=== PATIENT | female | born 1975 | race Caucasian/White ===

== ENCOUNTER → 2017-11-27 | Outpatient (CLI) | payer BC ==
[~2017-11-27] MED LIST: MULVITMINE
== END | disposition home or self-care (01) ==
LOC: LAB 09:56 → LAB SHORT 09:56
PROVIDERS: Obstetrics & Gynecology
DX: Z01.419 Encounter for gynecological examination (general) (routine) without abnormal findings (principal)
CPT/HCPCS: 87624; G0123

== ENCOUNTER 2019-03-06 13:07 | Emergency (ER) | payer OTHER, BC ==
[~2019-03-06] VITALS: Ht 157.5 cm; Wt 72.6 kg
[2019-03-06] MEDS ORDERED: CYCL10 PO (13:56)
[2019-03-06] MEDS ORDERED: Norco 5-325 Ta1 EACH PO (13:56)
[2019-03-06] MEDS ORDERED: IBUP600 PO (13:56)
== END 2019-03-06 14:22 | disposition home or self-care (01) ==
LOC: ER 13:07
DX: M54.5 Low back pain (principal); Z91.018 Allergy to other foods
CPT/HCPCS: 96372; 99283-25; J1885

== ENCOUNTER → 2021-01-26 | Outpatient (CLI) | payer BC ==
[~2021-01-26] MED LIST changes: +CYCL10 PO; +IBUP600 PO; +Norco 5-325 Ta1 EACH PO
[2021-01-27 10:00] LABS: Candida species (DNA Probe) Negative (NEGATIVE); G. vaginalis (DNA Probe) Negative (NEGATIVE); T. vaginalis (DNA Probe) Negative (NEGATIVE)
[2021-01-28 11:08] LABS: HPV 16 Negative (Negative); HPV 18 Negative (Negative); HPV OTHER HR TYPES Negative (Negative)
== END | disposition home or self-care (01) ==
LOC: LAB 12:02 → LAB SHORT 12:02
PROVIDERS: Student in an Organized Health Care Education/Training Program
DX: Z01.419 Encounter for gynecological examination (general) (routine) without abnormal findings (principal)
CPT/HCPCS: 87070; 87205; 87480; 87510; 87660

== ENCOUNTER → 2021-05-18 | Outpatient (CLI) | payer BC ==
[2021-05-18 14:37] LABS: Alanine Aminotransfer (ALT/SGP 22 U/L (12-78); Albumin/Globulin Ratio 1.3 (0.8-1.8); Alk Phos 58 U/L (50-136); Anion Gap 3 mmol/L (6-16); Aspartate Aminotrans (AST/SGOT 19 U/L (12-37); Bilirubin, Total 0.5 mg/dL (0.1-1.0); Blood Urea Nitrogen 11 mg/dL (8-24); Bun/Creatinine Ratio 13.4 (12.0-20.0); CHOL/HDL RATIO 3.7; CO2, Blood 30 mmol/L (21-32); Calcium, Blood 9.2 mg/dL (8.5-10.1); Chloride, Blood 102 mmol/L (98-108); Cholesterol 218 mg/dL (50-200); Creatinine, Blood 0.82 mg/dL (0.40-1.00); Globulin, Blood 3.1 g/dL (2.2-4.0); Glomerular Filtration Rate >60 (60-); Glucose, Blood 103 mg/dL (70-99); HDL Cholesterol 59 mg/dL (>39); LDL/HDL RATIO 2.2; Low Density Lipoprotein Chol 129 mg/dL (0-110); Potassium, Blood 4.1 mmol/L (3.5-5.5); Sodium, Blood 135 mmol/L (136-145); Total Protein, Blood 7.1 g/dL (6.4-8.2); Triglycerides 149 mg/dL (30-160); Very Low Density Lipoprot Chol 29 mg/dL (6-32)
== END | disposition home or self-care (01) ==
LOC: LAB SHORT 10:45
PROVIDERS: Family Medicine
DX: F11.20 Opioid dependence, uncomplicated (principal); Z68.29 Body mass index [BMI] 29.0-29.9, adult
CPT/HCPCS: 80053; 80061

== ENCOUNTER 2022-03-14 12:08 | Day surgery (SDC) | payer BC ==
[~2022-03-14] VITALS: Ht 160 cm; Wt 70.3 kg
[2022-03-14] MEDS ORDERED: BUPRENORPHINE1 EAC9 (12:44)
[2022-03-14] MEDS ORDERED: BUPR75 (12:45)
[2022-03-14] MEDS ORDERED: Cymbalta20 MG (12:45)
--- NOTE | 2022-03-14 13:57 | NUR ---
03/14/22 [id number] Teena Helms ROLL PLACED UNDER PATIENTS STOMACH TO HELP STRAIGHTEN OUT HER COLON TURNS.
== END 2022-03-14 14:54 | disposition home or self-care (01) ==
LOC: ORSCSDS 12:08
PROVIDERS: Student in an Organized Health Care Education/Training Program
PROC: 0DBK8ZZ Excision of Ascending Colon, Via Natural or Artificial Opening Endoscopic (ICD-10-PCS; principal; 2022-03-14 13:15)
DX: K59.00 Constipation, unspecified (principal); D12.2 Benign neoplasm of ascending colon; Q43.8 Other specified congenital malformations of intestine; I10 Essential (primary) hypertension; F11.20 Opioid dependence, uncomplicated; Z79.899 Other long term (current) drug therapy
CPT/HCPCS: 88305; J2250; J2704; J7120

== ENCOUNTER 2022-09-05 07:43 | Emergency (ER) | payer BC ==
[~2022-09-05] VITALS: Ht 157.5 cm; Wt 72.6 kg
[~2022-09-05 07:43] MED LIST changes: +BUPR75; +BUPRENORPHINE1 EAC9; +Cymbalta20 MG
[2022-09-05] MEDS ORDERED: CYMBALTA30 M2 PO (07:57)
[2022-09-05] MEDS ORDERED: ATOR40TA PO (07:57)
[2022-09-05] MEDS ORDERED: HYDHCL25 PO (07:58)
[2022-09-05 09:40] VITALS: BP 141/100
== END 2022-09-05 09:45 | disposition home or self-care (01) ==
LOC: ER 07:43
DX: N75.1 Abscess of Bartholin's gland (principal); F41.9 Anxiety disorder, unspecified; F32.A Depression, unspecified; E78.5 Hyperlipidemia, unspecified; Z91.018 Allergy to other foods; Z79.899 Other long term (current) drug therapy
CPT/HCPCS: 56420; 99282-25

== ENCOUNTER → 2023-07-03 | Outpatient (CLI) | payer BC ==
[~2023-07-03] MED LIST changes: +ATOR40TA PO; +CYMBALTA30 M2 PO; +HYDHCL25 PO
== END | disposition home or self-care (01) ==
LOC: LAB SHORT 07:58 → LAB 07:58
DX: N39.0 Urinary tract infection, site not specified (principal)
CPT/HCPCS: 87077; 87086; 87186